=== PATIENT | male | born 1995 | race Hispanic/Latino ===

== ENCOUNTER 2017-04-24 14:28 | Emergency (ER) | payer OTHER, SELFPAY ==
[~2017-04-24] VITALS: Ht 168.9 cm; Wt 75.1 kg
[2017-04-24] MEDS ORDERED: IBUPROFEN 600 MG TAB PO ONE (15:15)
--- NOTE | 2017-04-24 15:25 | REP ---
Clinical: Trauma. Technique: AP, lateral, bilateral oblique views right wrist . Findings: The carpal bones, surrounding osseous structures, soft tissues, and joint spaces are normal. There is no evidence for acute fracture or dislocation. No subcutaneous emphysema or radiodense foreign body. Impression: Normal wrist series. No acute fracture or dislocation Signed by Raj Quiroz MD 04/24/2017 03:17 P
[2017-04-24] MEDS ORDERED: IBUPROFEN 600 MG TAB As Ordered ONE (15:53)
--- NOTE | 2017-04-24 16:18 | REP ---
RIGHT HAND SERIES, FOUR VIEWS: There is no evidence of an acute fracture, dislocation or intrinsic bone disease. IMPRESSION: No fracture or dislocation. Signed by Amrik Garcia MD 04/25/2017 04:48 P
[2017-04-24] MEDS ORDERED: PERCOCET 5MG/325MG TAB PO ONE (17:15)
[2017-04-24] MEDS ORDERED: PERCOCET 5MG/325MG TAB As Ordered ONE (17:17)
[2017-04-24] MEDS ORDERED: NORCOTAB PO (18:19)
[2017-04-24 18:27] VITALS: BP 141/78
== END 2017-04-24 18:25 | disposition home or self-care (01) ==
LOC: M ED 14:28
DX: S60.222A Contusion of left hand, initial encounter (principal); W22.8XXA Striking against or struck by other objects, initial encounter; Y92.89 Other specified places as the place of occurrence of the external cause; Y93.89 Activity, other specified; Y99.8 Other external cause status; Z88.0 Allergy status to penicillin